=== PATIENT | female | born 1965 | race Caucasian/White ===

== ENCOUNTER 2024-09-15 20:17 | Inpatient (IN) | payer OTHER, SELFPAY ==
[2024-09-15] VITALS (11 sets, daily range): BP systolic 98–145; BP diastolic 59–84; BMI 32.2; BMI 32.8
[2024-09-15 16:09] LABS: % Basophils 0.8 % (0-2); % Eosinophils 3.1 % (0-6); % Immature Granulocytes 0.4 % (0-0.5); % Lymphocytes 24.3 % (20.5-51.1); % Monocytes 6.6 % (1.7-9.3); % Neutrophils 64.8 % (42.2-75.2); Absolute Eosinophils 0.2 10^3/uL (0-0.7); Absolute Lymphocytes 1.3 10^3/uL (1.2-3.4); Absolute Monocytes 0.3 10^3/uL (0.1-0.6); Absolute Neutrophils 3.3 10^3/uL (1.4-6.5); Hematocrit 24.2 % (37.0-47.0); Hemoglobin 6.4 g/dL (12.0-16.0); Mean Corp Hgb Conc. 26.4 g/dL (33.0-37.0); Mean Corpuscular Hgb 16.2 pg (27.0-31.0); Mean Corpuscular Volume 61.1 fL (81.0-99.0); Nucleated Red Blood Cells % 0 %; Platelet Count 270 10^3/uL (130-400); Red Blood Cell Count 3.96 10^6/uL (4.20-5.40); Red Cell Dist. Width 20.9 % (11.5-14.5); White Blood Cell Count 5.2 10^3/uL (4.8-10.8)
[2024-09-15 16:15] LABS: ALT (SGPT) 14 U/L (0-35); AST (SGOT) 16 U/L (14-36); Albumin 4.3 g/dl (3.5-5.0); Alkaline Phosphatase 62 U/L (38-126); Blood Urea Nitrogen 14 mg/dl (7-17); Calcium 9.5 mg/dl (8.4-10.2); Carbon Dioxide 25 mmol/L (22-30); Chloride 111 mmol/L (98-107); Glucose 100 mg/dl (70-99); INR 0.98; Lipase 183 U/L (23-300); PT 13.5 Sec (11.4-14.6); Sodium 142 mmol/L (135-145); Total Bilirubin 0.4 mg/dl (0.2-1.3); Total Protein 6.9 g/dl (6.3-8.2); eGFR > 60.00
[2024-09-15 16:16] LABS: APTT 24.1 Sec (23.4-35.0)
--- NOTE | 2024-09-15 19:08 | ED.GENMED ---
History of Present Illness
General
Chief Complaint: Abnormal Lab Value
Source: patient
Time Seen by Provider: 09/15/24 17:50
History of Present Illness
History of Present Illness:
58-year-old female with past medical history of GERD presents to the emergency department for evaluation after she had abnormal hemoglobin on outpatient labs this past Friday, contacted today and told she needed to come to the ER. Patient saw her
primary care provider who ordered the blood work after she had been experiencing increased fatigue, lightheadedness, exertional dyspnea over the last few weeks/months but acutely worse over the last week or so. Patient also states that for the last
year or so she has been experiencing epigastric pain about an hour or so after eating or drinking. Patient reports that she is symptom-free at time of my. She denies any melena or hematochezia, current chest pain, palpitations, diaphoresis, lower
extremity edema. Patient denies frequent NSAID use, no alcohol use, no cigarettes or tobacco. No abnormal weight loss or gain.
Past History
Past History
ED Past Medical History: GERD and Psychiatric; Negative HTN
ED Past Surgical History: Orthopedic; Negative Cardiac
Social History
Tobacco: Non-smoker
Alcohol: None
Drug: None
Personal:
Living: with family
Employment: Employed
Family History
Family History: Other
Review of Systems
Review of Systems
All Other Systems: ROS reviewed and negative except as documented in HPI and ROS
Phy Exam
Physical Exam
Physical Exam:
GENERAL: Alert , in no apparent distress
EYE: clear conjunctiva b/l
HEAD: NCAT
ENT: o/p clr, mmm.
CARDIAC: Regular rate and rhythm .
LUNGS: Clear breath sounds bilaterally, no acute respiratory distress, no wheezes/rales/rhonchi
ABDOMEN: Soft, without focal tenderness, no r/g, no cvat
RECTAL EXAM: Chaperoned by ED CAROLEE Mckay, light brown stool, heme-negative
NEUROLOGICAL: Alert and oriented
SKIN: Warm and dry, skin intact.
MUSCULOSKELETAL: No edema, well perfused.
PSYCH: Normal and appropriate interaction.
Scores
Heart Failure Risk
Heart Failure Risk Score: Not Applicable
Heart Score for Chest Pain Patients
STEMI patient?: Not applicable
Withdrawal Assessment of Alcohol
Withdrawal Assessment Completed?: Not applicable
Course
Orders/Labs/Results
Orders:
Orders
09/15/24 15:44
Electrocardiogram (*1) Urgent
Reason for Study: Abdominal Pain
EKG- Treatment ONCE
09/15/24 15:55
Type+Screen Urgent
Complete Blood Count/With Diff Urgent
Comprehensive Metabolic Panel Urgent
Ferritin Urgent
Comment: ADD ON
Iron Urgent
Comment: ADD ON
Lipase Urgent
PT/INR [Prothrombin Time] Urgent
PTT Urgent
Total Iron Binding Urgent
Comment: ADD OB
09/15/24 18:35
Blood Bank Products [* Blood Bank Products] Urgent
Blood Bank Products: *Packed RBC Leuko(PRBC's)
Quantity: 1
Transfuse Today: Yes
Reason: Anemia
09/15/24 19:11
Add On- LAB Urgent
Tests Added?: iron, ferritin, TIBC
Abnormal Lab Results
09/15/24
15:55
RBC 3.96 L 10^6/uL
(4.20-5.40)
Hgb 6.4 L* g/dL
(12.0-16.0)
Hct 24.2 L %
(37.0-47.0)
MCV 61.1 L fL
(81.0-99.0)
MCH 16.2 L pg
(27.0-31.0)
MCHC 26.4 L g/dL
(33.0-37.0)
RDW 20.9 H %
(11.5-14.5)
Chloride 111 H mmol/L
(98-107)
Glucose 100 H mg/dl
(70-99)
Crossmatch IS Only See Detail
09/15/24 15:55
09/15/24 15:55
Vital Signs
Initial and Last Documented VS:
Initial Vital Signs
Temp Pulse Resp BP Pulse Ox
98.5 F 88 18 145/74 99
09/15/24 15:41 09/15/24 15:41 09/15/24 15:41 09/15/24 15:41 09/15/24 15:41
Last Documented Vital Signs
Temp Pulse Resp BP Pulse Ox
98.5 F 71 15 135/59 100
09/15/24 19:36 09/15/24 19:36 09/15/24 19:36 09/15/24 19:36 09/15/24 19:36
MDM/Problems Addressed
Differential Diagnosis Includes:
Microcytic versus macrocytic anemia, GI bleeding, malignancy
MDM/Problems Addressed:
58-year-old female presenting the ER for evaluation after having reportedly low hemoglobin as an outpatient. Labs initiated on arrival do show a hemoglobin of 6.4, MCV 61 likely signifying microcytic anemia. Rectal exam revealed light brown stool
that was heme-negative. Patient hemodynamically stable. She was consented for 1 unit packed red blood cells. Given her worsening symptoms combined with her GI symptoms we will plan for admission for continued evaluation and treatment with
possible GI team consulting. Will notify hospitalist team.
*Pulse Oximetry
Patient hypoxic: no
*EKG
Heart Rate: 86
Rate: normal
Rhythm: sinus
Ischemia: no ischemia
*Instantizer Operator Interpretation
Rate: normal
Rhythm: sinus
*Critical Care Note
Total Time (30-74mins, 75-104mins- exclusive of procedures): Not Applicable
Patient Management
Discussion with other providers: Hospitalist
Escalation/DeEscalation of care consider admission/obs:
Hospitalist team accepts for continued evaluation and treatment
ED Attending Note
-
Portions of this chart may have been created with voice recognition software.� Occasional wrong word or��sound alike� substitutions may have occurred due to the inherent limitations of voice recognition software.
Discharge Plan
Departure
Patient Disposition: Admit
Date of Disposition: 09/15/24
Time of Disposition: 19:24
Presentation/result/management discussed w/ accepting MD/DO: Hospitalist
Discharge Problem:
Anemia
Prescriptions:
No Action
sumatriptan succinate 50 MG tablet
50 mg PO BID Qty: 10 0RF
rfmkpbphcx-ihiinaecwbjgf-wwol 1 TAB tablet
1 tab PO .Q4-6HPRN PRN (Reason: Headache) Qty: 20 0RF
ibuprofen 600 MG tablet
600 mg PO Q6H Qty: 30 0RF
ondansetron 4 MG tablet,disintegrating
4 mg PO TIDPRN PRN (Reason: NAUSEA) Qty: 20 0RF
Referrals:
Pedro Rodriguez DO [Family Provider, Family Practice]
Interventions
Interventions:
*Risk Screen - Suicide Last Done: 09/15/24 15:41
*General Assessment Last Done: 09/15/24 15:41
*Neglect/Abuse Screening Last Done: 09/15/24 18:34
*ED- Fall Risk Assessment Last Done: 09/15/24 18:34
*ED COVID-19 Vaccine History Last Done: 09/15/24 18:34
Discharge Date and Time
Print Language: GEORGIAN
[2024-09-15 19:47] LABS: Iron 20 ug/dl (37-170)
[2024-09-15 19:53] LABS: Percent Saturation 4 % (20-50); Total Iron Binding Capacity 472 ug/dl (265-497)
--- NOTE | 2024-09-15 20:00 | HPS.HSE ---
Family Physician
-
Family Physician: Pedro Rodriguez
Chief Complaint
-
Abnormal Lab
History of Present Illness
Patient is a 58y F with PMH significant for anxiety / depression / insomnia who presents to ED for evaluation of anemia noted on outpatient labs. Patient seen by PCP recently and had routine blood work. Called today and advised to present to
the ED for severe anemia. Patient does states that she has had symptoms for > 1 year of fatigue. She notes progressive symptoms in that time of lightheadedness, SOB with activity, fatigue. She also reports epigastric pain that occurs
intermittently. Worse at night and worse with PO intake (solids or liquids). She denies any specific heartburn / reflux symptoms - though she does state that she has a prior history of severe heartburn. Patient also reports intermittent N/V. She
believes that this is triggered by her sleep med (alprazolam) - though she also states it is the only thing that helps her sleep.
Patient describes falling asleep briefly - then waking with N/V before falling back to sleep.
Patient has never had endoscopic examination in the past.
Patient denies any bloody emesis. No black or bloody stools. She no longer has menses (9 years). No other evident bleeding.
Medical History
Past Medical History
Past Medical History: Reports Other
Additional Past Medical History:
Anxiety / Depression
Insomnia
GERD
Past Surgical History: Reports Other
Additional Past Surgical History:
Lumbar Discectomy
Social History
Tobacco: Non-smoker
Alcohol: None
Drug: None
Family History
Family History: CAD and Other (Mother: Lung cancer, DM)
Allergies / Home Medications
Allergies reflects when Allergies were last updated in [facility].
Home Medications with original date entered in [facility]
Allergy/Medication List:
Allergies
Allergy/AdvReac Type Severity Reaction Status Date / Time
No Known Allergies Allergy Verified 09/15/24 19:42
Home Medications
alprazolam 2 mg tablet 2 mg PO HS PRN Insomnia 09/15/24
vilazodone 20 mg tablet (Viibryd) 30 mg PO DAILY 09/15/24
Review of Systems
-
History Source: Patient
Constitutional: Reports Fatigue; Denies Fever or Chills
EENT: Denies Sore Throat
Respiratory: Reports Trouble Breathing; Denies Cough
Cardiac: Denies Chest Pain or Palpitations
Abdomen/GI: Reports Abdominal Pain, Nausea and Vomiting; Denies Diarrhea, Constipated, Bloody Stools or Black Stools
: Denies Dysuria, Frequency or Bleeding
Musculoskeletal: Denies Joint Pain or Edema
Neurological: Reports Dizzy; Denies Headache
Psych: Denies Depression or Anxiety
Physical Exam
Vital Signs
Vital Signs
Temp Pulse Resp BP Pulse Ox
98.8 F 72 14 138/68 100
09/15/24 19:56 09/15/24 19:56 09/15/24 19:56 09/15/24 19:56 09/15/24 19:56
Physical Exam
General: Other (58y F in no acute distress.)
HEENT: Moist mucous membranes and PERRLA
Respiratory: Clear; No Wheezes, Rales or Rhonchi
Cardiac: S1/S2 and Regular Rhythm; No Murmur
GI: Soft, Non Tender, Non Distended and Normal Bowel Sounds
Musculoskeletal: No Clubbing, No Cyanosis and No Edema
Neuro: AO x 3
Laboratory Results
-
09/15/24 15:55
09/15/24 15:55
Laboratory Results
PT 13.5 Sec (11.4-14.6) 09/15/24 15:55
INR 0.98 09/15/24 15:55
APTT 24.1 Sec (23.4-35.0) 09/15/24 15:55
Total Bilirubin 0.4 mg/dl (0.2-1.3) 09/15/24 15:55
AST 16 U/L (14-36) 09/15/24 15:55
ALT 14 U/L (0-35) 09/15/24 15:55
Alkaline Phosphatase 62 U/L (38-126) 09/15/24 15:55
Lipase 183 U/L (23-300) 09/15/24 15:55
Impression/Plan
-
A/P: Patient is a 58y F with PMH significant for anxiety / depression who presents to ED for evaluation of anemia on outpatient labs and progressive fatigue.
Symptomatic Anemia
GERD / Epigastric Pain
- Admit for further evaluation and treatment.
- Microcytic anemia - iron studies pending.
- Very likely gradual GI blood loss given associated symptoms of epigastric pain, N/V, etc.
- Transfusing PRBCs in the ED. Follow H&H and provide additional transfusions if needed.
- IV PPI BID.
- GI evaluation for possible endoscopic examination.
Anxiety / Depression
- Stable. Continue Viibryd.
Insomnia
- Likely combination of underlying anxiety as well as reflux symptoms.
- Nocturnal N/V and reflux likely impacting sleep.
- IV PPI as noted above.
- Hopefully addressing GI issues will improve insomnia somewhat.
- Continue alprazolam for now but agree with PCP plan for tapering as an outpatient.
DVT Prophylaxis: SCDs
Code Status: Full
[2024-09-15 20:13] LABS: Ferritin 3.3 ng/ml (11.1-264.0)
[2024-09-15] MEDS: PROTONIX IV 40 MG IV (21:41)
[2024-09-15] MEDS: NSS 1000 IV (21:41)
[2024-09-15] MEDS: NSS (PRESERVATIVE FREE) 10 ML IV (21:41)
[2024-09-15] MEDS: XANAX 2 MG PO (21:57)
[2024-09-16] VITALS (10 sets, daily range): BP systolic 96–135; BP diastolic 53–115
[2024-09-16 05:47] LABS: Hematocrit 25.4 % (37.0-47.0); Hemoglobin 7.2 g/dL (12.0-16.0); Mean Corp Hgb Conc. 28.3 g/dL (33.0-37.0); Mean Corpuscular Volume 63.7 fL (81.0-99.0); Platelet Count 238 10^3/uL (130-400); Red Blood Cell Count 3.99 10^6/uL (4.20-5.40); Red Cell Dist. Width 22.5 % (11.5-14.5); White Blood Cell Count 3.7 10^3/uL (4.8-10.8)
[2024-09-16 06:02] LABS: Blood Urea Nitrogen 9 mg/dl (7-17); Calcium 8.7 mg/dl (8.4-10.2); Carbon Dioxide 21 mmol/L (22-30); Chloride 114 mmol/L (98-107); Estimated Creatinine Clearance 82 ml/min; Glucose 92 mg/dl (70-99); Sodium 142 mmol/L (135-145); eGFR > 60.00
--- NOTE | 2024-09-16 07:02 | CON.GI ---
Addendum entered and electronically signed by Marline Johnson MD 09/16/24 13:23:
I saw and examined the patient.
The TUBE CLEANING OPERATOR's note was reviewed and I agree with the note.
Comment: This is a pleasant 58-year-old female with past medical history as listed below who presented to the ER after outpatient labs revealed anemia and sent by her PCP and her hemoglobin on admission was noted to be 6.4 with an MCV of 61. She
has been having fatigue. She has also been having epigastric abdominal pain especially after about 2 to 3 hours after eating with early satiety and nausea vomiting intermittently and symptoms are also worse when she lays down. on lab work she was
noted to have iron deficiency anemia the stool was brown heme-negative in the ER. She also has occasional constipation but denies any rectal bleeding or melena. she never had an endoscopy or colonoscopy in the past. She also suffers from insomnia.
She also has history of reflux she says it was really bad a few years ago but recently she has only been taking Tums as needed and occasional Prilosec. She denies any symptoms of dysphagia.
Assessment and plan abdominal pain with intermittent episodes of nausea, vomiting, GERD, early satiety and also presented with iron deficiency anemia need to rule out possible reflux esophagitis, hiatal hernia or PUD or angioectasias causing chronic
GI blood loss will also need to rule out possible neoplasm causing GOO sx and MALIK. Will schedule her for an endoscopy today and if that is negative then will schedule her for a CT scan and also a colonoscopy. She did receive 1 unit of packed red
blood cells and also receiving iron infusions. She currently has no overt bleeding and her stool in the ER was also brown heme-negative most likely etiology was chronic GI blood loss
Original Note:
Consultation
-
Date/Time Consultation Requested: 09/15/242044
Date/Time Consultation Performed: 09/16/24 0700
Requesting Provider: Rony Dotson DO
Performing Provider: NITHIN Oliveira, Marline Johnson MD
Reason for Consultation: symptomatic anemia
Medical History
Chief Complaint / HPI
Chief Complaint: abnormal labs, epigastric pain
History of Present Illness:
Pt is a 58yo with hx anxiety, depression, insomnia, GERD with recent evaluation for dyspnea and dizziness. She is noted in work up with anemia with hbg 6.4 on admission with MCV 61 and iron studies c/w iron deficiency. In review of prior labs noted
hbg 15.8 in 2020 with normal iron studies. Rectal exam in ER with brown heme neg stool.
In review with patient she admits to several GI symptoms. She states post prandial epigastric pain about 2-3 hours after eating. She also admits to vomiting often large volumes after taking Alprazolam for sleep. She also has occasional
constipation based on intakes. She had mild bloating but denies wt loss, diarrhea, blood or black in stools. She denies NSAID or anticoagulation use. She has tried PRN tums and Prilosec with minimal improvement of symptoms. No hx EGD or
colonoscopy in past. She denies any bruising, vaginal bleeding or hematuria.
Past Medical History
Past Medical History: GERD, Hypercholesterolemia and Psychiatric (anxiety/depression, insomnia )
Past Surgical History: Orthopedic (lumbar discectomy)
Social History
Tobacco: Non-Smoker
Alcohol: None
Drug: None
Living: With Family
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
Family History
Family History: Other (no family hx GI malignancies or IBD, mother with lung CA and CAD)
Allergies / Home Medications
Allergy/AdvReac Type Severity Reaction Status Date / Time
No Known Allergies Allergy Verified 09/15/24 19:42
�Medication �Instructions �Recorded
alprazolam 2 mg tablet 2 mg PO HS PRN Insomnia 09/15/24
vilazodone 20 mg tablet (Viibryd) 30 mg PO DAILY 09/15/24
Review of Systems
-
History Source: Patient
Constitutional: Reports Fatigue and Sleep Disturbance
EENT: Reports No Symptoms
Respiratory: Reports Trouble Breathing (with exertion)
Abdomen/GI: Reports Abdominal Pain (2-3 hours post prandial ), Vomiting and Constipated
: Reports No Symptoms
Musculoskeletal: Reports No Symptoms
Skin: Reports No Symptoms
Neurological: Reports Dizzy and Weakness
Endocrine: Reports No Symptoms
Hematologic/Lymphatic: Reports No Symptoms
Vital Signs
Temp Pulse Resp BP Pulse Ox
97.4 F 67 18 110/60 99
09/16/24 03:33 09/16/24 03:33 09/16/24 03:33 09/16/24 03:40 09/16/24 03:33
Physical Exam
Exam
General: Well Developed, Well Nourished and No Apparent Distress
HEENT: Normocephalic and Anicteric
Respiratory: Clear
Cardiac: Regular Rhythm
GI: Soft, Non Tender and Non Distended
Rectal: Other (heme neg in ER)
Musculoskeletal: No Clubbing and No Cyanosis
Skin: Warm and Dry
Neuro: Awake, Alert and AO x 3
Psych: Calm
Results
WBC 3.7 10^3/uL (4.8-10.8) L 09/16/24 05:12
Hgb 7.2 g/dL (12.0-16.0) L 09/16/24 05:12
Hct 25.4 % (37.0-47.0) L 09/16/24 05:12
MCV 63.7 fL (81.0-99.0) L 09/16/24 05:12
Plt Count 238 10^3/uL (130-400) 09/16/24 05:12
Absolute Neuts (auto) 3.3 10^3/uL (1.4-6.5) 09/15/24 15:55
PT 13.5 Sec (11.4-14.6) 09/15/24 15:55
INR 0.98 09/15/24 15:55
APTT 24.1 Sec (23.4-35.0) 09/15/24 15:55
Sodium 142 mmol/L (135-145) 09/16/24 05:12
Potassium 4.0 mmol/L (3.5-5.1) 09/16/24 05:12
Chloride 114 mmol/L (98-107) H 09/16/24 05:12
Carbon Dioxide 21 mmol/L (22-30) L 09/16/24 05:12
BUN 9 mg/dl (7-17) 09/16/24 05:12
Creatinine 0.8 mg/dL (0.6-1.0) 09/16/24 05:12
Calcium 8.7 mg/dl (8.4-10.2) 09/16/24 05:12
Total Bilirubin 0.4 mg/dl (0.2-1.3) 09/15/24 15:55
AST 16 U/L (14-36) 09/15/24 15:55
ALT 14 U/L (0-35) 09/15/24 15:55
Alkaline Phosphatase 62 U/L (38-126) 09/15/24 15:55
Lipase 183 U/L (23-300) 09/15/24 15:55
Diagnostic Image Results:
none
Prior GI Procedures:
EGD: none
Colonoscopy: none
Assessment / Plan
-
Pt is a 58yo with hx anxiety, depression, insomnia, GERD with recent evaluation for dyspnea and dizziness. She is noted in work up with anemia with hbg 6.4 on admission with MCV 61 and iron studies c/w iron deficiency. In review of prior labs
noted hbg 15.8 in 2020 with normal iron studies. Rectal exam in ER with brown heme neg stool. In review with patient she admits to several GI symptoms. She states post prandial epigastric pain about 2-3 hours after eating. She also admits to
vomiting often large volumes after taking Alprazolam for sleep. She also has occasional constipation based on intakes. She had mild bloating but denies wt loss. She denies NSAID or anticoagulation use.
-symptomatic iron deficiency anemia
-2-3 hour post prandial pain
-vomiting large volume bile with Alprazolam
other med problems:
-anxiety/depression
-insomnia
-GERD
PLAN:
Etiology of MALIK related to GI process- PUD, ectasia, mass vs intermittent obstructive issue with post prandial pain and vomiting- underlying IBD vs other
plan for EGD today then eventual colonoscopy
after EGD consider CT
trend hbg s/p transfusion
add IV iron
NPO
cont PPI
NSAID avoidance
pt is scheduled follow up in January for new visit will need rescheduled
-
-
Thank you for consultation and allowing me to participate in the patient's care. Please call the prescriptionist GI physician during the after hours with any questions or concerns.
[2024-09-16] MEDS: NSS 1000 IV ×2 (07:07→13:30)
[2024-09-16] MEDS: NSS (PRESERVATIVE FREE) 10 ML IV ×2 (07:37→22:03)
[2024-09-16] MEDS: PROTONIX IV 40 MG IV ×2 (07:37→22:02)
--- NOTE | 2024-09-16 09:13 | W.PN.HOSP.TC ---
Addendum entered and electronically signed by Vanessa George MD 09/16/24 18:59:
I saw and evaluated the patient independently. I reviewed the resident�s note and agree with findings and plan as documented by Dr. Delgado.
GENERAL: well developed, well nourished, female in no apparent distress
HEENT: NC/AT
HEART: regular rate and rhythm, +S1, +S2
LUNGS : clear to auscultation bilaterally
ABDOM: soft, nontender, nondistended, + bowel sounds
EXT: no cyanosis, clubbing, or edema
NEUROLOGIC: grossly intact
Symptomatic iron deficiency anemia (chronic)--unclear cause--EGD neg for ulcers/tumors, etc--?malabsorption vs decreased iron intake vs occult slow blood loss?--iron studies confirm iron deficiency anemia--apprec GI--for CT abdomen/pelvis--will need
colonoscopy and possibly capsule study--IV iron per GI--trend HGB--s/p 1 unit pRBC, may need further transfusion--IV PPI
Anxiety / Depression- cont home viibryd
Insomnia- likely combo of underlying anxiety and reflux sx- cont home alprazolam for now
DVT proph-- SCDs
Code status--FULL CODE
Original Note:
Today's Communication/Plan
-
- endoscopy today
Assessment / Plan
Assessment / Plan
Assessment:
58yo F [facility] anxiety/depression, GERD presented to [facility] ED 09/15 for evaluation of anemia on outpt labs. Reports >1 yr fatigue, progressive lightheadedness, CONROY. Reports intermittent epigastric pain worse at night and w PO intake. Hb 6.4 on admission,
MCV 61, iron panel c/w iron deficiency anemia. Heme neg. Transfused 1u pRBCs in ED.
Plan:
Symptomatic iron deficiency anemia
GERD/epigastric pain
- iron panel c/w iron deficiency
- likely due to gradual blood loss in setting of epigastric pain, N/V
- IV PPI BID
- transfused 1 u pRBCs in ED
- IV iron
- appreciate GI input - endoscopy, eventual colonoscopy
Anxiety / Depression
- cont home viibryd
Insomnia
- likely combo of underlying anxiety and reflux sx
- cont home alprazolam for now
Diet: NPO
DVT ppx: SCDs
Code status: FULL CODE
Anticipated Discharge: 24 - 48 hours
Subjective/Interval History
-
Date of Service: September 16, 2024
Pt is a 58yo F [facility] anxiety/depression, GERD presented to [facility] ED 09/15 for evaluation of anemia on outpt labs. Reports >1 yr fatigue, progressive lightheadedness, CONROY. Reports intermittent epigastric pain worse at night and w PO intake.
Objective Data
-
Labs:
Laboratory Results
09/16/24
05:12
WBC 3.7 L
Hgb 7.2 L
Hct 25.4 L
Plt Count 238
Sodium 142
Potassium 4.0
Chloride 114 H
Carbon Dioxide 21 L
BUN 9
Creatinine 0.8
Glucose 92
Calcium 8.7
Vital Signs:
Vital Signs
Temp Pulse Resp BP Pulse Ox
98.1 F 69 16 120/65 98
09/16/24 07:42 09/16/24 07:42 09/16/24 07:42 09/16/24 07:42 09/16/24 07:42
I&O
09/15/24 09/16/24 09/17/24
06:59 06:59 06:59
Intake Total 250 / 250
Balance 250 / 250
Review of Systems
-
History Source: Patient
Constitutional: Reports No Symptoms
Respiratory: Reports No Symptoms
Cardiac: Reports No Symptoms
Abdomen/GI: Reports No Symptoms
Musculoskeletal: Reports No Symptoms
Skin: Reports No Symptoms
Neuro: Reports No Symptoms
Physical Exam
-
General: Well Developed and Well Nourished
HEENT: Normocephalic and Atraumatic
Respiratory: Clear to Auscultation
Cardiac: Regular Rhythm and S1/S2
GI: Soft, Nontender, Nondistended and Normal Bowel Sounds
Musculoskeletal: No Clubbing, No Cyanosis and No Edema
Neuro: Awake, Alert and Oriented
Psych: Calm
[2024-09-16] MEDS: OMNIPAQUE 50 ML PO (13:28)
[2024-09-16] MEDS: FERRLECIT 110 MG IV (14:14)
--- NOTE | 2024-09-16 15:00 | CM ---
Patient seen at bedside in [facility] with physician. Patient states that she lives alone in a 2 story home with no DME prior to admission. Patient uses the [facility] in [place] and her PCP is Dr. Rodriguez. Patient plan is for discharge home with no
needs. CM will continue to follow for discharge planning needs.
Plan; home with no needs vs home with Vn
[2024-09-16] MEDS: XANAX 2 MG PO (22:02)
[2024-09-17] VITALS (7 sets, daily range): BP systolic 102–129; BP diastolic 50–75
[2024-09-17 05:45] LABS: Hematocrit 26.9 % (37.0-47.0); Hemoglobin 7.5 g/dL (12.0-16.0); Mean Corp Hgb Conc. 27.9 g/dL (33.0-37.0); Mean Corpuscular Hgb 17.7 pg (27.0-31.0); Mean Corpuscular Volume 63.6 fL (81.0-99.0); Platelet Count 236 10^3/uL (130-400); Red Blood Cell Count 4.23 10^6/uL (4.20-5.40); Red Cell Dist. Width 23.3 % (11.5-14.5); White Blood Cell Count 4.7 10^3/uL (4.8-10.8)
[2024-09-17 06:05] LABS: Blood Urea Nitrogen 10 mg/dl (7-17); Calcium 8.9 mg/dl (8.4-10.2); Carbon Dioxide 26 mmol/L (22-30); Chloride 113 mmol/L (98-107); Estimated Creatinine Clearance 82 ml/min; Glucose 89 mg/dl (70-99); Potassium 4.2 mmol/L (3.5-5.1); Sodium 144 mmol/L (135-145); Uric Acid 4.4 mg/dl (2.5-6.2); eGFR > 60.00
[2024-09-17 06:09] LABS: C-Reactive Protein < 5.00 mg/L (0.0-10.00)
--- NOTE | 2024-09-17 08:04 | W.PN.HOSP.TC ---
Addendum entered and electronically signed by Vanessa George MD 09/17/24 18:10:
I saw and evaluated the patient independently. I reviewed the resident�s note and agree with findings and plan as documented by Dr. Delgado.
GENERAL: well developed, well nourished, female in no apparent distress
HEENT: NC/AT
HEART: regular rate and rhythm, +S1, +S2
LUNGS : clear to auscultation bilaterally
ABDOM: soft, nontender, nondistended, + bowel sounds
EXT: no cyanosis, clubbing, or edema
NEUROLOGIC: grossly intact
Symptomatic iron deficiency anemia (chronic)--unclear cause--EGD with hiatal hernia and esophagitis with nonbleeding uleration--?malabsorption vs decreased iron intake vs occult slow blood loss?--iron studies confirm iron deficiency anemia--apprec
GI-- CT abdomen/pelvis unremarkable--will need colonoscopy and possibly capsule study---trend HGB--s/p 2 unit pRBC with HGB to 9.1--PPI BID
Anxiety / Depression- cont home viibryd
Insomnia- likely combo of underlying anxiety and reflux sx- cont home alprazolam for now
DVT proph-- SCDs
Code status--FULL CODE
Original Note:
Today's Communication/Plan
-
- blood transfusion
- recheck H&H
Assessment / Plan
Assessment / Plan
Assessment:
58yo F h anxiety/depression, GERD presented to [facility] ED 09/15 for evaluation of anemia on outpt labs. Reports >1 yr fatigue, progressive lightheadedness, CONROY. Reports intermittent epigastric pain worse at night and w PO intake. Hb 6.4 on admission,
MCV 61, iron panel c/w iron deficiency anemia. Heme neg. Transfused 1u pRBCs in ED.
Plan:
Symptomatic iron deficiency anemia
GERD/epigastric pain
- iron panel c/w iron deficiency
- likely due to gradual blood loss in setting of epigastric pain, N/V
- endoscopy 09/16: LA Grade C reflux esophagitis with ulceration with no bleeding. Biopsied. Large hiatal hernia. A few gastric polyps. Biopsied. Normal examined duodenum.
- IV PPI BID
- transfused 1 u pRBCs in ED
- IV iron
- appreciate GI input - eventual colonoscopy
- H&H s/p blood transfusion
Anxiety / Depression
- cont home viibryd
Insomnia
- likely combo of underlying anxiety and reflux sx
- cont home alprazolam for now
Diet: regular
DVT ppx: SCDs
Code status: FULL CODE
Anticipated Discharge: Within 24 hours
Subjective/Interval History
-
Date of Service: September 17, 2024
Endoscopy yesterday. Pt tolerated procedure well. Anemic, transfusing 1u pRBCs.
Objective Data
-
Labs:
Laboratory Results
09/17/24
05:20
WBC 4.7 L
Hgb 7.5 L
Hct 26.9 L
Plt Count 236
Sodium 144
Potassium 4.2
Chloride 113 H
Carbon Dioxide 26
BUN 10
Creatinine 0.8
Glucose 89
Calcium 8.9
Vital Signs:
Vital Signs
Temp Pulse Resp BP Pulse Ox
97.8 F 75 16 117/62 95
09/17/24 07:26 09/17/24 07:26 09/17/24 07:26 09/17/24 07:26 09/17/24 07:26
I&O
09/16/24 09/17/24 09/18/24
06:59 06:59 06:59
Intake Total 250 / 250
Balance 250 / 250
Review of Systems
-
History Source: Patient
Constitutional: Reports No Symptoms
Respiratory: Reports No Symptoms
Cardiac: Reports No Symptoms
Abdomen/GI: Reports No Symptoms
Neuro: Reports No Symptoms
Physical Exam
-
General: Well Developed, Well Nourished and Obese
HEENT: Normocephalic and Atraumatic
Respiratory: Clear to Auscultation and Non Labored Respirations
Cardiac: Regular Rhythm and S1/S2
GI: Soft, Nontender, Nondistended and Normal Bowel Sounds
Musculoskeletal: No Clubbing, No Cyanosis and No Edema
Skin: Warm and Dry
Neuro: Awake, Alert and Oriented
Psych: Calm
[2024-09-17 08:16] LABS: Erythrocyte Sed Rate 7 mm/hour (0-20)
[2024-09-17] MEDS: NSS (PRESERVATIVE FREE) 10 ML IV (09:19)
[2024-09-17] MEDS: PROTONIX IV 40 MG IV (09:19)
[2024-09-17] MEDS: NON-FORMULARY ITEM 30 MG PO (10:51)
--- NOTE | 2024-09-17 12:46 | W.PN.GI.CBS2 ---
Today's Communication / Plan
-
gerd precautions
Assessment / Plan
-
Pt is a 58yo with hx anxiety, depression, insomnia, GERD with recent evaluation for dyspnea and dizziness. She is noted in work up with anemia with hbg 6.4 on admission with MCV 61 and iron studies c/w iron deficiency. In review of prior labs
noted hbg 15.8 in 2020 with normal iron studies. Rectal exam in ER with brown heme neg stool. In review with patient she admits to several GI symptoms. She states post prandial epigastric pain about 2-3 hours after eating. She also admits to
vomiting often large volumes after taking Alprazolam for sleep. She also has occasional constipation based on intakes. She had mild bloating but denies wt loss. She denies NSAID or anticoagulation use.
-symptomatic iron deficiency anemia
-2-3 hour post prandial pain
-vomiting large volume bile with Alprazolam
other med problems:
-anxiety/depression
-insomnia
-GERD
PLAN:
hiatal hernia/esophagitis d/w pt.
she needs to follow dietary and lifestyle modifications
pepcid before bed or after dinner
will need to move up outpatient f/u (our office will call)
no further inpatient w/u will sign off
Subjective
Subjective
Date of Service: September 17, 2024
Pt with no complaints, eating. Ct showed hiatal hernia, esophagitis as did egd
Objective
Data Reviewed
Laboratory Data:
Laboratory Results
09/17/24 05:20
09/17/24 05:20
Laboratory Results
PT 13.5 Sec (11.4-14.6) 09/15/24 15:55
INR 0.98 09/15/24 15:55
APTT 24.1 Sec (23.4-35.0) 09/15/24 15:55
Total Bilirubin 0.4 mg/dl (0.2-1.3) 09/15/24 15:55
AST 16 U/L (14-36) 09/15/24 15:55
ALT 14 U/L (0-35) 09/15/24 15:55
Alkaline Phosphatase 62 U/L (38-126) 09/15/24 15:55
Lipase 183 U/L (23-300) 09/15/24 15:55
Vital Signs and I&O:
Vital Signs
Temp Pulse Resp BP Pulse Ox
98.5 F 75 16 129/74 97
09/17/24 11:05 09/17/24 11:05 09/17/24 11:05 09/17/24 11:05 09/17/24 10:55
I&O
09/16/24 09/17/24 09/18/24
06:59 06:59 06:59
Intake Total 250 / 250 0 / 0
Balance 250 / 250 0 / 0
Physical Exam
Physical Exam
GI: Soft, Non Distended and Non Tender
[2024-09-17] MEDS: FERRLECIT 110 MG IV (15:01)
[2024-09-17 15:18] LABS: Hematocrit 31.9 % (37.0-47.0); Hemoglobin 9.1 g/dL (12.0-16.0)
--- NOTE | 2024-09-17 15:24 | W.DCSUMMARY ---
Addendum entered and electronically signed by Vanessa George MD 09/17/24 18:13:
Read, reviewed, and agree. See same day progress note for additional details. Time spent coordinating care, DC planning, review of DC plan of care with resident, transition of care, review of records in EMR, med rec, consults, notes, d/w
consultants, nursing, family, and CM = 37 minutes
Patient should be on PPI twice daily for at least 30 days followed by daily thereafter. Patient should follow-up with GI for repeat endoscopy to ensure clearance/resolution of esophagitis with ulceration. In addition, patient has been instructed
to take iron supplements at home.
Original Note:
Discharge Summary
Discharge Data
Date of Admission: 09/15/24
Date of Discharge: 09/17/24
-
Pending Results: No
Hospital Course
Discharging Physician : Dr. Rosa Maria Delgado, Dr. Vanessa George
Disposition : home
Primary care physician : Pedro Rodriguez
Principal Discharge diagnosis : Symptomatic iron deficiency anemia, GERD
Chronic Discharge diagnosis : Anxiety/depression, insomnia
Hospital Course : [address] [facility] anxiety/depression, GERD presented to [facility] ED 09/15 for evaluation of anemia on outpt labs. Reports >1 yr fatigue, progressive lightheadedness, CONROY. Reports intermittent epigastric pain worse at night and w PO intake. Hb
6.4 on admission, MCV 61, iron panel c/w iron deficiency anemia. Heme neg. Transfused 1u pRBCs in ED. Underwent endoscopy, large hiatal hernia and reflux esophagitis found. The following day, low Hb 7.5, so transfused another pRBC. Hb addie to 9.1.
Hemodynamically stable, afebrile.
Important imaging findings :
CT abd/pelvis 09/16:
Moderate size hiatal hernia with possible mild thickening of the wall of the small portion of included distal thoracic esophagus which may be due to inflammation.
Small right lobe hepatic cysts as well as additional subcentimeter low-attenuation right lobe hepatic lesion too small to characterize.
Bilateral subcentimeter low-attenuation renal lesions too small to characterize.
Lobulated likely leiomyomatous changes of the uterus.
Descending colon and sigmoid diverticulosis.
Procedure findings :
Endoscopy 09/16:
- LA Grade C reflux esophagitis with ulceration with no bleeding. Biopsied.
- Large hiatal hernia.
- A few gastric polyps. Biopsied.
- Normal examined duodenum.
Discharge Plan
-
Patient Disposition: Home (Routine Discharge)
Discharge Diagnosis/Procedures: Symptomatic iron deficiency anemia, GERD
Condition: Fair
Diet: No restrictions and As tolerated
Activity: No restrictions
Driving Restrictions: As prior to admission
Bathing Restrictions: None
Blood Work: repeat cbc in 1-2 weeks - slip sent to [facility]
Instructions: Low iron, Acid reflux and GERD in adults, Ferrous Sulfate, Low iron in adults - Discharge instructions
Referrals:
Pedro Rodriguez DO [Family Provider, Family Practice] - in one week
Marline Johnson MD [Active, Gastroenterology] - in three to four weeks
Referral Note: call to arrange 3-4 week GI follow up with Dr. Johnson or RG. [phone] ext [phone]. Will need repeat EGD and colonoscopy in 2 months .
Prescriptions:
New
ferrous sulfate 325 mg (65 mg iron) tablet
325 mg PO DAILY 30 Days Qty: 30 0RF
Continued
alprazolam 2 mg Tablet
2 mg PO HS PRN (Reason: Insomnia)
vilazodone [Viibryd] 20 mg Tablet
30 mg PO DAILY
Discharge Orders:
Discharge Patient (As Directed); Ordered 09/17/24
Ordered By: Rosa Maria Delgado
Discharge Date and Time
Print Language: YORUBA
--- NOTE | 2024-09-17 15:30 | CM ---
Patient seen at bedside with physicians earlier today on . Patient for discharge today no VN needs per patient and physician. Patient has a ride home and no other concerns at this time. Patient for discharge today. CM will continue to follow
for discharge planning needs.
Plan; home with no needs anticipated at this time
== END 2024-09-17 17:47 | disposition home or self-care (01) | DRG 812 ==
LOC: 3 WEST ACU 20:17
PROVIDERS: Emergency Medicine; Nurse Practitioner Adult Health; ADMITTING PHYSICIAN Hospitalist; ATTENDING PHYSICIAN Internal Medicine; EMERGENCY PHYSICIAN Emergency Medicine; FAMILY PHYSICIAN Family Medicine; OTHER PHYSICIAN Internal Medicine Gastroenterology
PROC: 30233N1 Transfusion of Nonautologous Red Blood Cells into Peripheral Vein, Percutaneous Approach (ICD-10-PCS; 2024-09-15)
PROC: 0DB18ZX Excision of Upper Esophagus, Via Natural or Artificial Opening Endoscopic, Diagnostic (ICD-10-PCS; 2024-09-16)
PROC: 0DB68ZX Excision of Stomach, Via Natural or Artificial Opening Endoscopic, Diagnostic (ICD-10-PCS; 2024-09-16)
DX: D50.0 Iron deficiency anemia secondary to blood loss (chronic) (principal); K31.7 Polyp of stomach and duodenum; K21.00 Gastro-esophageal reflux disease with esophagitis, without bleeding; K44.9 Diaphragmatic hernia without obstruction or gangrene; F32.A Depression, unspecified; F41.9 Anxiety disorder, unspecified; G47.00 Insomnia, unspecified; K57.30 Diverticulosis of large intestine without perforation or abscess without bleeding; K76.89 Other specified diseases of liver; R68.81 Early satiety; R53.83 Other fatigue; Z80.1 Family history of malignant neoplasm of trachea, bronchus and lung; Z82.49 Family history of ischemic heart disease and other diseases of the circulatory system; Z83.3 Family history of diabetes mellitus; Z87.19 Personal history of other diseases of the digestive system
CPT/HCPCS: 88305; 88312; 74177; 80048; 80053; 82728; 83540; 83550; 83690; 84550; 85014; 85018; 85025; 85027; 85610; 85652; 85730; 86140; 86850; 86900; 86901; 86920; 93005; 99285; J2916; P9016; Q9967

== ENCOUNTER → 2024-09-30 10:47 | Outpatient (REF) | payer OTHER, SELFPAY | LOC: HWRCS 10:47 | PROVIDERS: ATTENDING PHYSICIAN Internal Medicine Cardiovascular Disease; FAMILY PHYSICIAN Family Medicine | DX: R06.09 Other forms of dyspnea (principal) | CPT/HCPCS: 93306 ==

== ENCOUNTER → 2024-10-07 14:27 | Outpatient (REF) | payer OTHER, SELFPAY ==
--- NOTE | 2024-10-07 16:30 | CARDSERVLU ---
Echocardiogram with [facility] completed after protocol screening completed. Allergies verified. Pt here for Stress ECHO
Patent IV site: _Right antecubital 22 G PC____
IV site flushed with 0.9% NaCl pre and post administration.
Diluted bolus method utilized to enhance visualization of ventricular massey.
Total volume given: __4__ mL
Patient tolerated all procedures well without complications.
Heplock D/C ed at 1540, site clear, no redness, no edema. Pressure held, no bleeding, 2x2 applied and taped. Pt offers no complaints.
== END ==
LOC: RCS 14:27
PROVIDERS: ATTENDING PHYSICIAN Internal Medicine Cardiovascular Disease; FAMILY PHYSICIAN Family Medicine
DX: R06.09 Other forms of dyspnea (principal)
CPT/HCPCS: 93017; 93350

== ENCOUNTER → 2024-10-22 16:11 | Outpatient (REF) | payer OTHER, SELFPAY ==
[2024-10-22 14:32] LABS: Hematocrit 35.5 % (37.0-47.0); Hemoglobin 10.5 g/dL (12.0-16.0); Mean Corp Hgb Conc. 29.6 g/dL (33.0-37.0); Mean Corpuscular Volume 73.2 fL (81.0-99.0); Platelet Count 199 10^3/uL (130-400)
[2024-10-22 14:34] LABS: Nucleated Red Blood Cells % 0 %
[2024-10-22 14:55] LABS: Anisocytosis 3+; Normal RBC Morphology No
[2024-10-22 14:56] LABS: Hypochromasia 4+; Microcytosis 2+; Stomatocytes 1+
== END ==
LOC: OIDL 16:11
PROVIDERS: ATTENDING PHYSICIAN Nurse Practitioner Primary Care
DX: D50.0 Iron deficiency anemia secondary to blood loss (chronic) (principal)
CPT/HCPCS: 85025